=== PATIENT | male | born 1960 | race American Indian/Alaskan Native ===

== ENCOUNTER 2018-01-07 10:27 | Emergency (ER) | payer MEDICARE, MEDICAID ==
--- NOTE | 2018-01-07 11:41 | ED PDOC ---
Lower Extremity Pain/Injury Time Seen by Provider: 01/07/18 11:07 Chief Complaint (Nursing): Lower Extremity Problem/Injury Chief Complaint (Provider): left lower leg History Per: Patient History/Exam Limitations: no limitations Onset/Duration Of Symptoms: Days (x3 weeks) Current Symptoms Are (Timing): Still Present Additional Complaint(s): Kenia Rasmussen Jr is a 57 year old male, with a past medical history of HTN and bipolar disorder, who presents to the emergency department complaining of a left lower leg pain onset for x3 weeks. Patient states he had a surgery to his left leg for tendon repair performed by Dr. Felix, city wellness coordinator. However, for the past x3 weeks he's had episodes of a crampy pain to his left lower leg with difficulty walking. Patient was seen by his doctor who gave him injections for pain. Patient took motrin for pain and is currently taking Seroquel. He denies any chest pain, shortness of breath, headache, fever, chills or complaints of blood pressure. No further medical complaints. PMD: Dr. Stevan Silva Director Of Analytical Development: Dr. Felix in [place]. Past Medical History Reviewed: Historical Data, Nursing Documentation, Vital Signs Vital Signs: Last Vital Signs Temp 98.4 F 01/07/18 10:33 Pulse 100 H 01/07/18 10:33 Resp 20 01/07/18 10:33 BP 134/85 01/07/18 10:33 Pulse Ox 98 01/07/18 10:33 - Medical History PMH: Arthritis, Bipolar Disorder, HTN, Schizophrenia - Surgical History Other surgeries: left ankle - Family History Family History: States: Unknown Family Hx (no pertinent family history) - Social History Ex-Smoker (has not smoked in the last 12 months): Yes Alcohol: None Drugs: Denies - Home Medications Home Medications: Ambulatory Orders Medication Instructions Recorded Ambien 5 mg PO HS PRN 08/02/14 Depakote 500 mg PO DAILY 08/02/14 Ibuprofen 600 mg PO Q6 #20 tab 08/02/14 Klonopin 0.5 mg PO BID 08/02/14 Losartan 1 tab PO DAILY 08/02/14 Methocarbamol [Robaxin] 1,000 mg PO TID #30 tab 08/02/14 Motrin 800 mg PO TID 08/02/14 Oxycodone HCl/Acetaminophen 1 tab PO BID #7 tab 08/02/14 [Percocet 325 mg-5 mg] SEROquel 300 mg PO HS 08/02/14 Seroquel 25 mg PO PRN 08/02/14 Divalproex [Depakote DR(*BID*)] 500 mg PO TID 07/04/17 Losartan/Hydrochlorothiazide 50 mg pe PO DAILY 07/04/17 [Losartan-Hctz 50-12.5 mg Tab] Quetiapine Fumarate [Seroquel] 200 mg PO DAILY 07/04/17 clonazePAM [clonAZEPAM] 0.5 mg PO TID 07/04/17 - Allergies Allergies/Adverse Reactions: Allergies Allergy/AdvReac Type Severity Reaction Status Date / Time No Known Allergies Allergy Verified 07/04/17 10:12 Review of Systems ROS Statement: Except As Marked, All Systems Reviewed And Found Negative Constitutional: Negative for: Fever, Chills Cardiovascular: Negative for: Chest Pain Respiratory: Negative for: Shortness of Breath Musculoskeletal: Positive for: Leg Pain (left lower crampy) Neurological: Negative for: Headache Physical Exam - Reviewed Nursing Documentation Reviewed: Yes Vital Signs Reviewed: Yes - Physical Exam Appears: Positive for: Non-toxic, No Acute Distress Head Exam: Positive for: ATRAUMATIC, NORMAL INSPECTION, NORMOCEPHALIC Skin: Positive for: Normal Color, Warm, Dry Eye Exam: Positive for: Normal appearance, EOMI, PERRL Neck: Positive for: Painless ROM Extremity: Positive for: Normal ROM (upper and lower extremities). Negative for : Tenderness (left lower extremity), Deformity, Swelling (left lower extremity) Neurologic/Psych: Positive for: Alert, Oriented (x3) - Laboratory Results Result Diagrams: 01/07/18 12:00 01/07/18 12:00 - ECG O2 Sat by Pulse Oximetry: 98 (RA) Pulse Ox Interpretation: Normal - Progress Re-evaluation Time: 14:42 Condition: Re-examined, Improved Medical Decision Making Medical Decision Making: Time: 11:07 Initial Impression: left lower leg pain. Differential includes musculoskeletal pain r/o old fractures and DVT Initial Plan: --BMP --CPK --CBC Tibia Fibula left [RAD] --Duplex Lower extrm vein left [US] --Reevaluation -Patient refused medication and doesn't want injections. 13:48 Tibia/Fibula X-Ray FINDINGS: BONES: No fracture or destructive lesion.Plantar and Achilles Tendon insertion calcaneal spurs. JOINT SPACES: Unremarkable. OTHER FINDINGS: None. IMPRESSION: No acute findings related to/accounting for the clinical presentation. Additional benign and/or incidental findings described above. 13:20 Extremity Ultrasound FINDINGS: 2-D, color and duplex Doppler analysis of the lower extremity venous circulation using routine protocol from the femoral veins through the popliteal veins. Venous compressibility: Normal. Flow and augmentation patterns: Normal. Visualized veins upper third of calf: Normal. Campbell cyst: None. IMPRESSION: No sonographic or Doppler evidence for DVT in left lower extremity. ----- Scribe Attestation: Documented by Bonifacio Grayson, acting as a scribe for Tato Pillai MD. Provider Scribe Attestation: All medical record entries made by the Scribe were at my direction and personally dictated by me. I have reviewed the chart and agree that the record accurately reflects my personal performance of the history, physical exam, medical decision making, and the department course for this patient. I have also personally directed, reviewed, and agree with the discharge instructions and disposition. Disposition - Clinical Impression Clinical Impression: Leg pain, lateral, Calcaneal spur - Patient ED Disposition Is Patient to be Admitted: No Doctor Will See Patient In The: Office Counseled Patient/Family Regarding: Studies Performed, Diagnosis, Need For Followup - Disposition Referrals: Podiatry Clinic [Outside] Disposition: Routine/Home Disposition Time: 14:43 Condition: GOOD Additional Instructions: Take motrin for pain. Follow up with your city wellness coordinator within 1 week. Instructions: Muscle and Bone Pain (DC), Heel Spurs
[2018-01-07 12:49] LABS: HEMOGLOBIN 13.4 g/dL (12.0-18.0); MEAN CELL VOLUME 87.2 fl (80.0-94.0); MEAN CORPUSCULAR HEMOGLOBIN 29.1 pg (27.0-31.0); MEAN CORPUSCULAR HGB CONC 33.3 g/dL (33.0-37.0); RBC 4.62 Mil/uL (4.40-5.90); RED CELL DISTRIBUTION WIDTH 13.1 % (11.5-14.5); WHITE BLOOD COUNT 4.4 K/uL (4.8-10.8)
[2018-01-07 13:02] LABS: BLOOD UREA NITROGEN 19 mg/dl (9-20); GFR AFRICAN-AMERICAN > 60; GFR NON-AFRICAN AMERICAN > 60
[2018-01-07 13:03] LABS: CALCIUM 9.5 mg/dL (8.4-10.2)
--- NOTE | 2018-01-07 13:22 | US ---
Date of service: 01/07/2018 HISTORY: lower leg pain . PRIORS: None. FINDINGS: 2-D, color and duplex Doppler analysis of the lower extremity venous circulation using routine protocol from the femoral veins through the popliteal veins. Venous compressibility: Normal. Flow and augmentation patterns: Normal. Visualized veins upper third of calf: Normal. Campbell cyst: None. IMPRESSION: No sonographic or Doppler evidence for DVT in left lower extremity.
--- NOTE | 2018-01-07 13:50 | RAD ---
Date of service: 01/07/2018 PROCEDURE: Radiographs of the left tibia and fibula. HISTORY: left leg Pain. No history of recent/ related trauma provided COMPARISON: None available. TECHNIQUE: Frontal and lateral views obtained. FINDINGS: BONES: No fracture or destructive lesion.Plantar and Achilles Tendon insertion calcaneal spurs. JOINT SPACES: Unremarkable. OTHER FINDINGS: None. IMPRESSION: No acute findings related to/accounting for the clinical presentation. Additional benign and/or incidental findings described above.
[2018-01-07 14:51] VITALS: BP 119/81; PULSE 84; RESP 16; TEMP 97.6; O2SAT 100
== END 2018-01-07 15:01 | disposition home or self-care (01) ==
LOC: H.ER 10:27
DX: M79.605 Pain in left leg (principal); F31.9 Bipolar disorder, unspecified; F20.9 Schizophrenia, unspecified; I10 Essential (primary) hypertension